=== PATIENT | female | born 1995 | race Caucasian/White ===

== ENCOUNTER → 2017-07-22 12:08 | Outpatient (CLI) | payer OTHER | END | disposition home or self-care (01) | LOC: LAB 12:08 | DX: B34.9 Viral infection, unspecified (principal) ==

== ENCOUNTER 2018-02-11 06:10 | Day surgery (SDC) | payer OTHER | END 2018-02-11 17:40 | disposition home or self-care (01) | LOC: CIR.AMB 06:10 | DX: N83.01 Follicular cyst of right ovary (principal); N83.8 Other noninflammatory disorders of ovary, fallopian tube and broad ligament ==

== ENCOUNTER 2021-06-19 16:29 | Outpatient (CLI) | payer OTHER | END 2021-06-19 16:31 | disposition home or self-care (01) | LOC: LAB 16:29 | PROVIDERS: ATTEND Anesthesiology | DX: Z20.828 Contact with and (suspected) exposure to other viral communicable diseases (principal) ==

== ENCOUNTER 2022-03-04 13:48 | Outpatient (CLI) | payer OTHER | END 2022-03-04 14:01 | disposition home or self-care (01) | LOC: LAB 13:48 | PROVIDERS: ATTEND Anesthesiology | DX: A49.3 Mycoplasma infection, unspecified site (principal); Z20.822 Contact with and (suspected) exposure to COVID-19 ==

== ENCOUNTER → 2022-08-01 15:46 | Outpatient (CLI) | payer OTHER | END | disposition home or self-care (01) | LOC: PPH VACUNA 15:46 | DX: Z23 Encounter for immunization (principal) ==

== ENCOUNTER 2024-01-25 10:24 | Outpatient (CLI) | payer OTHER ==
[2024-01-25 11:27] LABS: HEMATOCRIT 37.4 % (36.0-45.00); HEMOGLOBIN 13.1 g/dL (12.0-15.00); MEAN CELL VOLUME 90.6 fL (80.00-100.00); MEAN CORPUSCULAR HEMOGLOBIN 31.8 pg (27.00-32.0); MEAN CORPUSCULAR HGB CONC 35.1 g/dl (32.0-36.0); PLATELET COUNT 246 K/uL (150-450); RED BLOOD COUNT 4.12 M/uL (4.00-6.00); RED CELL DISTRIBUTION WIDTH 12.7 % (11.5-14.5)
[2024-01-25 11:37] LABS: URINE APPEARANCE Clear; URINE BILIRRUBIN Negative (NEGATIVE); URINE BLOOD Negative; URINE COLOR Yellow; URINE GLUCOSE Negative (NEGATIVE); URINE LEUKOCYTE Negative; URINE NITRATE Negative; URINE PROTEIN Negative (NEGATIVE); URINE UROBILINOGEN 0.2 E.U./dl
[2024-01-25 11:41] LABS: URINE BACTERIA 163.7 uL (0.0-1933); URINE EPITHELIAL CELLS 13.3 uL (0.0-38.8); URINE RBC 9.7 uL (0.0-20.8)
[2024-01-25 11:58] LABS: INR 1.05; PARTIAL THROMBOPLASTIN TIME 29.9 SECONDS (22.0-34.0)
[2024-01-25 12:28] LABS: ALBUMIN 4.1 gm/dL (3.4-5.0); BILIRUBIN TOTAL 0.9 mg/dL (0.3-1.2); CALCIUM 8.9 mg/dL (8.5-10.1); CHOL HDL RATIO 3.6 (0-5.0); CREATININE SERUM 0.64 mg/dL (0.55-1.02); GFR 112.17; POTASSIUM 4.1 mEq/L (3.5-5.1); T4 TOTAL 9.16 UG/DL (4.8-13.9); TOTAL PROTEIN 7.1 gm/dL (6.4-8.2); TSH 0.994 uIU/mL (0.358-3.74)
== END 2024-01-25 12:19 | disposition home or self-care (01) ==
LOC: LAB 10:24
PROVIDERS: ATTEND Anesthesiology
DX: Z01.89 Encounter for other specified special examinations (principal)

== ENCOUNTER 2025-05-01 07:29 | Outpatient (CLI) | payer OTHER ==
[2025-05-01] MEDS ORDERED: NORFLEX100MG PO (09:57)
[2025-05-01] MEDS ORDERED: DICLOFENAC POTA50 MG PO (09:57)
== END 2025-05-01 07:31 | disposition home or self-care (01) ==
LOC: RAD 07:29
PROVIDERS: ATTEND Anesthesiology
DX: M54.2 Cervicalgia (principal); M54.50 Low back pain, unspecified